=== PATIENT | male | born 1990 | race Caucasian/White ===

== ENCOUNTER 2020-12-27 10:55 | Emergency (ER) | payer BC, OTHER ==
[~2020-12-27] VITALS: Ht 172.7 cm; Wt 84.8 kg
[2020-12-27] MEDS ORDERED: ONDANSETRON 2MG/ML, 2ML ONE (11:14)
[2020-12-27] MEDS ORDERED: SODIUM CHLORIDE 0.9% 1,000ML IVBOLUS ONE (11:30)
[2020-12-27] MEDS ORDERED: ONDANSETRON 2MG/ML, 2ML IVPush ONE (11:30)
[2020-12-27 12:03] LABS: MEAN CORPUSCULAR HEMOGLOBIN 31.9 pg (27.5-34.5); MEAN CORPUSCULAR HGB CONC 35.2 g/dL (33.2-36.2); MEAN PLATELET VOLUME 9.6 fL (7.4-10.4); PLATELET COUNT 156 x10^3/uL (130-400); RED BLOOD COUNT 5.51 x10^6/uL (4.38-5.82); RED CELL DISTRIBUTION WIDTH 12.5 % (9.4-14.8)
[2020-12-27 12:07] LABS: ALBUMIN 4.1 g/dL (3.4-5.0); ANION GAP 9 mmol/L (5-15); CALCIUM 8.3 mg/dL (8.5-10.1); CHLORIDE 107 mmol/L (98-107)
[2020-12-27 12:11] LABS: ALANINE AMINOTRANSFERASE 29 U/L (12-78); ALKALINE PHOSPHATASE 49 U/L (45-117); BILIRUBIN,TOTAL 1.7 mg/dL (0.2-1.0); CREATININE 0.95 mg/dL (0.7-1.3); TOTAL PROTEIN 6.9 g/dL (6.4-8.2)
[2020-12-27 12:20] LABS: <PLATELET ESTIMATE> ADEQUATE; <PLT MORPHOLOGY> NORMAL PLT MORPH; <RBC MORPHOLOGY> NORMAL; BASOS#(MANUAL) 0.13 x10^3/uL (0-0.1); BASOS% (MANUAL) 2 % (0-1); LYMPH#(MANUAL) 0.26 x10^3/uL (1-3.4); LYMPHS% (MANUAL) 4 % (22-44); MONOS% (MANUAL) 3 % (2-9)
[2020-12-27 12:21] LABS: BAND#(MANUAL) 1.17 x10^3/uL; BANDS%(MANUAL) 18 % (0-7); SEG#(MANUAL) 4.75 x10^3/uL (1.8-6.8); SEGS% (MANUAL) 73 % (42-75)
--- NOTE | 2020-12-27 13:53 | NUR ---
PO CHALLENGE INITIATED
--- NOTE | 2020-12-27 14:26 | NUR ---
PT REC'VD DISCHARGE INSTRUCTIONS AND EDUCATION. PT HAD NO FURTHER QUESTIONS. PT AMBULATED WITH FRIEND TO DC AREA, STEADY GAIT.
[2020-12-27 14:28] VITALS: BP 140/74
== END 2020-12-27 14:31 | disposition home or self-care (01) ==
LOC: ED 12:42
DX: R11.2 Nausea with vomiting, unspecified (principal); E86.0 Dehydration; R19.7 Diarrhea, unspecified; E83.51 Hypocalcemia
CPT/HCPCS: 36415; 80053; 83690; 85025; 96361; 96374; 99283; J2405; J7030